=== PATIENT | female | born 1960 | race Caucasian/White ===

== ENCOUNTER 2017-01-17 11:37 | Emergency (ER) | payer OTHER ==
--- NOTE | ~2017-01-17 | CT4 ---
[facility] A Service of [facility] RADIOLOGY TEXT RESULTS PATIENT: OPAL ZABALA LOCATION: [facility] : 62 UNIT #: [id number] AGE: [address]: Blayne Muller MD SEX: F ORDER DR: [id number] [facility] [address] [place], [place] [address] [id number] E MR#: [id number] #: [id number] NAME: OPAL ZABALA. : 1960 SEX: F STUDY DATE/TIME: 01/17/2017 10:08 UNIT: [facility] ROOM: STUDY DESCRIPTION: CT Abd and Pelv Wo Cont Attending Physician: Blayne Muller M.D. Ordering Physician: Blayne Muller M.D. Primary Care Physician: Jared Guzman M.D. MEDICAL IMAGING REPORT This report is preliminary unless electronic signature is present EXAM CT abdomen and pelvis without contrast, 01/17/17 HISTORY A 56-year-old female right flank pain since this morning. COMPARISON None. TECHNIQUE This CT exam was performed with one or more of the following radiation dose reduction techniques: automatic exposure control, adjustment of mA and/or kV according to patient size, and iterative reconstruction. PROCEDURE 3 mm noncontrast axial images through the abdomen and pelvis. Enteric contrast was not administered. Sagittal and coronal reformed images were obtained. FINDINGS Abdomen findings: No renal or ureteral stone, hydronephrosis or hydroureter is seen. No perinephric inflammatory changes are identified. The appendix is not visualized but no pericecal inflammation is seen. The lung bases are clear. Bilateral breast augmentation changes. Noncontrast appearance of the liver, gallbladder, spleen, pancreas, adrenals within normal limits. The third - fourth duodenal segment and proximal jejunum appear abnormally concentrically thickened. Findings are nonspecific. Findings could represent changes of active bowel inflammation. Other etiologies such as malignancy or such as small bowel lymphoma, could have a very similar [facility] A Service [facility] RADIOLOGY TEXT RESULTS PATIENT: OPAL ZABALA LOCATION: [facility] : 62 UNIT #: [id number] AGE: [address]: Blayne Muller MD SEX: F ORDER DR: appearance. No evidence of high-grade bowel obstruction. Pelvis findings: Hysterectomy. Urinary bladder and rectum are normal. No pelvic adenopathy or free fluid is identified. No acute or suspicious osseous abnormalities are seen. IMPRESSION 1. There is abnormal concentric thickening of the duodenum, greatest in its third fourth segments in the proximal jejunum. Refer to online images denoted by arrows. Findings are nonspecific. The findings could represent benign changes of infectious or inflammatory enteritis. Other etiologies such as malignancy (i.e. small bowel lymphoma), could have a similar appearance. Please correlate with clinical symptoms. Consider short-term CT abdomen followup after trial of therapy or correlation with endoscopy. 2. The appendix is not visualized, but no pericecal inflammation is seen. 3. No urinary tract stone or hydronephrosis. 4. Hysterectomy. Dictated by... Judy Lang M.D. THIS IS AN ELECTRONICALLY VERIFIED REPORT Judy Lang M.D. at 01/18/2017 8:34 AM Lily TD: 01/17/2017 12:58 JOB #: [id number] MEDICAL IMAGING REPORT Page 1 of 1 COPY
[2017-01-17 08:56] LABS: URINE SOURCE CLEAN CATCH
[2017-01-17 09:17] LABS: URINE APPEARANCE CLOUDY; URINE BILIRUBIN NEG (NEG); URINE BLOOD NEG (NEG); URINE COLOR DK YELLOW; URINE GLUCOSE NEG (NEG); URINE KETONE TRACE (NEG); URINE LEUKOCYTE ESTERASE NEG (NEG); URINE NITRATE NEG (NEG); URINE PROTEIN NEG (NEG); URINE SPECIFIC GRAVITY 1.043 (1.003-1.035)
[2017-01-17 09:18] LABS: CULTURE INDICATED? NO
[~2017-01-17 11:37] MED LIST: ESTRATEST TABLE1 TAB PO; VIVELLE.0375 MG/2 TOP
== END 2017-01-17 11:41 | disposition home or self-care (01) ==
LOC: CED 11:37
DX: R10.9 Unspecified abdominal pain (principal); Z90.710 Acquired absence of both cervix and uterus; Z90.49 Acquired absence of other specified parts of digestive tract
CPT/HCPCS: 74176; 81003; 99284